=== PATIENT | female | born 1990 | race Caucasian/White ===

== ENCOUNTER 2017-05-16 09:29 | Emergency (ER) | payer SELFPAY ==
[~2017-05-16] VITALS: Ht 167.6 cm; Wt 59.0 kg
[2017-05-16 09:49] VITALS: BP 129/86
--- NOTE | 2017-05-16 09:53 | PHYS DOC ---
Adult General Chief Complaint Chief Complaint: MULTIPLE COMPLAINTS HPI HPI Patient is a 27 year old female who presents with right flank pain radiating to the right upper quadrant that began 3 days ago. Patient denies any nausea vomiting. Denies any urgency frequency or dysuria but states her urine feels very concentrated. She states she was seen at [facility] 3 weeks ago and was told she had a miscarriage at 14 weeks gestation. Patient states she never followed up after that. Patient denies any vaginal discharge, denies any bleeding, she states she's been sexually active and does not know if she is or not. Review of Systems Review of Systems Constitutional: Denies fever or chills [] Eyes: Denies change in visual acuity, redness, or eye pain [] HENT: Denies nasal congestion or sore throat [] Respiratory: Denies cough or shortness of breath [] Cardiovascular: No additional information not addressed in HPI [] GI: Reports right flank pain radiating to the right upper quadrant, denies nausea, vomiting, bloody stools or diarrhea [] : Reports concentrated urine Denies dysuria or hematuria [] Musculoskeletal: Denies back pain or joint pain [] Integument: Denies rash or skin lesions [] Neurologic: Denies headache, focal weakness or sensory changes [] All other systems were reviewed and found to be within normal limits, except as documented in this note. Current Medications Current Medications Current Medications Medications (Trade) Dose Ordered Sig/Nikki Start Time Stop Time Status Last Admin Dose Admin Sodium Chloride 1,000 ml @ 1,000 mls/hr 1X ONCE 05/16/17 10:00 05/16/17 10:31 DC Allergies Allergies Allergies Coded Allergies Type Severity Reaction Last Updated Verified No Known Drug Allergies 05/16/17 No Physical Exam Physical Exam Constitutional: Well developed, well nourished, no acute distress, non-toxic appearance. [] HENT: Normocephalic, atraumatic, bilateral external ears normal, oropharynx moist, no oral exudates, nose normal. [] Eyes: PERRLA, EOMI, conjunctiva normal, no discharge. [] Neck: Normal range of motion, no tenderness, supple, no stridor. [] Cardiovascular:Heart rate regular rhythm, no murmur [] Lungs & Thorax: Bilateral breath sounds clear to auscultation [] Abdomen: Bowel sounds normal, soft, no tenderness, no masses, no pulsatile masses. [] Skin: Warm, dry, no erythema, no rash. [] Back: No tenderness, moderate right CVA tenderness. [] Extremities: No tenderness, no cyanosis, no clubbing, ROM intact, no edema. [] Neurologic: Alert and oriented X 3, normal motor function, normal sensory function, no focal deficits noted. [] Psychologic: Affect normal, judgement normal, mood normal. [] Current Patient Data Vital Signs Vital Signs Date Time Temp Pulse Resp B/P (MAP) Pulse Ox O2 Delivery O2 Flow Rate FiO2 05/16/17 09:49 98.9 107 20 129/86 (100) 98 Room Air 98.9 Lab Values Laboratory Tests Test 05/16/17 09:35 05/16/17 09:38 05/16/17 09:55 Urine Collection Type Unknown Urine Color Yellow Urine Clarity Clear Urine pH 6.[address] [place] 1.015 Urine Protein 100 mg/dL (NEG-TRACE) Urine Glucose (UA) Negative mg/dL (NEG) Urine Ketones (Stick) Negative mg/dL (NEG) Urine Blood Large (NEG) Urine Nitrite Positive (NEG) Urine Bilirubin Negative (NEG) Urine Urobilinogen Dipstick 0.2 mg/dL (0.2 mg/dL) Urine Leukocyte Esterase Large (NEG) Urine RBC 1-2 /HPF (0-2) Urine WBC >40 /HPF (0-4) Urine Squamous Epithelial Cells Few /LPF Urine Bacteria Many /HPF (0-FEW) Urine Mucus Slight /LPF Urine Trichomonas Present Urine Opiates Screen Neg (NEG) Urine Methadone Screen Neg (NEG) Urine Barbiturates Neg (NEG) Urine Phencyclidine Screen Neg (NEG) Urine Amphetamine/Methamphetamine Neg (NEG) Urine Benzodiazepines Screen Neg (NEG) Urine Cocaine Screen Neg (NEG) Urine Cannabinoids Screen Neg (NEG) Urine Ethyl Alcohol Neg (NEG) POC Urine HCG, Qualitative Hcg negative (Negative) White Blood Count 17.2 x10^3/uL (4.0-11.0) H Red Blood Count 4.84 x10^6/uL (3.50-5.40) Hemoglobin 14.2 g/dL (12.0-15.5) Hematocrit 43.8 % (36.0-47.0) Mean Corpuscular Volume 91 fL (79-100) Mean Corpuscular Hemoglobin 29 pg (25-35) Mean Corpuscular Hemoglobin Concent 32 g/dL (31-37) Red Cell Distribution Width 13.7 % (11.5-14.5) Platelet Count 204 x10^3/uL (140-400) Neutrophils (%) (Auto) 87 % (31-73) H Lymphocytes (%) (Auto) 5 % (24-48) L Monocytes (%) (Auto) 8 % (0-9) Eosinophils (%) (Auto) 0 % (0-3) Basophils (%) (Auto) 0 % (0-3) Neutrophils # (Auto) 14.9 x10^3uL (1.8-7.7) H Lymphocytes # (Auto) 0.8 x10^3/uL (1.0-4.8) L Monocytes # (Auto) 1.5 x10^3/uL (0.0-1.1) H Eosinophils # (Auto) 0.0 x10^3/uL (0.0-0.7) Basophils # (Auto) 0.0 x10^3/uL (0.0-0.2) Segmented Neutrophils % 84 % (35-66) H Band Neutrophils % 3 % (0-9) Lymphocytes % 8 % (24-48) L Atypical Lymphocytes % (Manual) 1 % (0-0) H Monocytes % 4 % (0-10) Toxic Vacuolation Present Platelet Estimate Adequate (ADEQUATE) Large Platelets Present Sodium Level 132 mmol/L (136-145) L Potassium Level 3.7 mmol/L (3.5-5.1) Chloride Level 98 mmol/L (98-107) Carbon Dioxide Level 27 mmol/L (21-32) Anion Gap 7 (6-14) Blood Urea Nitrogen 9 mg/dL (7-20) Creatinine 1.1 mg/dL (0.6-1.0) H Estimated GFR (Cockcroft-Gault) 60.0 BUN/Creatinine Ratio 8 (6-20) Glucose Level 97 mg/dL (70-99) Calcium Level 9.1 mg/dL (8.5-10.1) Total Bilirubin 0.7 mg/dL (0.2-1.0) Aspartate Amino Transferase (AST) 16 U/L (15-37) Alanine Aminotransferase (ALT) 16 U/L (14-59) Alkaline Phosphatase 86 U/L (46-116) Total Protein 7.5 g/dL (6.4-8.2) Albumin 3.6 g/dL (3.4-5.0) Albumin/Globulin Ratio 0.9 (1.0-1.7) L Lipase 56 U/L (73-393) L Laboratory Tests 05/16/17 09:55 Laboratory Tests 05/16/17 09:55 EKG EKG [] Radiology/Procedures Radiology/Procedures [] Course & Med Decision Making Course & Med Decision Making Pertinent Labs and Imaging studies reviewed. (See chart for details) Patient is in the ED complaining of right flank pain radiating to the right upper quadrant for 3 days. She was at three weeks ago for a miscarriage. 10:00patient is requesting paperwork to be faxed to court stating she is in the Ed and will not attend her court date today at 11:00 because she can not walk. Of note patient is able to walk Patient was informed we do not get involved in court issues. 10:15 Patient is signing out AMA telling the nurses this is in the only [facility] hospital that does not fax paperwork to court. She states the only reason for her visit today was to get paperwork faxed to court stating she can not attend court. She was given AMA paperwork. She has enough time to go to court considering she is leaving the ED before 10:30am. Received a call from Isma CAPPS at [facility] stating patient showed up in their ED. He states she showed up at Court I refused to leave her car stating she can not walk and police had to witness she can not walk then be transported to the Ed. I gave Isma CAPPS our lab values including positive Trichomonas test. He promised to cover her for STDs Dragon Disclaimer Dennys Disclaimer This electronic medical record was generated, in whole or in part, using a voice recognition dictation system. 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
[2017-05-16] MEDS ORDERED: IV NORMAL SALINE 1000ML BAG 1,000 ML IV ONE (10:00)
[2017-05-16 10:06] LABS: BASO % 0 % (0-3); EOS % 0 % (0-3); HEMATOCRIT 43.8 % (36.0-47.0); HEMOGLOBIN 14.2 g/dL (12.0-15.5); LYMPH # 0.8 x10^3/uL (1.0-4.8); LYMPH % 5 % (24-48); MEAN CORPUSCULAR HEMOGLOBIN 29 pg (25-35); MEAN CORPUSCULAR HGB CONC 32 g/dL (31-37); MEAN CORPUSCULAR VOLUME 91 fL (79-100); MONO % 8 % (0-9); NEUT % 87 % (31-73); PLATELET COUNT 204 x10^3/uL (140-400); RED BLOOD COUNT 4.84 x10^6/uL (3.50-5.40); RED CELL DISTRIBUTION WIDTH 13.7 % (11.5-14.5); WHITE BLOOD COUNT 17.2 x10^3/uL (4.0-11.0)
[2017-05-16 10:13] LABS: CALCIUM 9.1 mg/dL (8.5-10.1); CREATININE 1.1 mg/dL (0.6-1.0); POTASSIUM 3.7 mmol/L (3.5-5.1)
[2017-05-16 10:15] LABS: BILIRUBIN,URINE NEGATIVE (NEG); GLUCOSE,URINE NEGATIVE (NEG); NITRITE,URINE POSITIVE (NEG); PH,URINE 6.5; PROTEIN,URINE 100 mg/dL (NEG-TRACE); UROBILINOGEN,URINE 0.2 mg/dL (0.2 mg/dL)
[2017-05-16 10:19] LABS: ALBUMIN 3.6 g/dL (3.4-5.0); ALBUMIN/GLOBULIN RATIO 0.9 (1.0-1.7); TOTAL BILIRUBIN 0.7 mg/dL (0.2-1.0); TOTAL PROTEIN 7.5 g/dL (6.4-8.2)
[2017-05-16 10:34] LABS: BARBITURATES NEG (NEG); BENZODIAZEPINES NEG (NEG); CANNABINOIDS NEG (NEG); COCAINE NEG (NEG); METHADONE NEG (NEG); OPIATES NEG (NEG); PHENCYCLIDINE NEG (NEG)
[2017-05-16 10:35] LABS: BACTERIA,URINE MANY /HPF (0-FEW); SQUAMOUS EPITHELIAL CELL,UR FEW /LPF; WBC,URINE >40 /HPF (0-4)
[2017-05-16 10:36] LABS: TRICHOMONAS,URINE PRESENT
[2017-05-16 11:05] LABS: PLT ESTIMATE ADEQUATE (ADEQUATE)
[2017-05-16 11:06] LABS: TOXIC VACUOLATION PRESENT
== END 2017-05-16 10:17 | disposition left against medical advice (07) ==
LOC: ER 09:29
DX: R10.9 Unspecified abdominal pain (principal)
CPT/HCPCS: 36415; 80053; 80307; 81001; 81025; 83690; 85007; 85025; 87086; 87186; 99284; G0479

== ENCOUNTER 2018-03-15 22:51 | Emergency (ER) | payer SELFPAY ==
[~2018-03-15] VITALS: Ht 165.1 cm; Wt 54.4 kg
[2018-03-15 23:20] VITALS: BP 137/73
[2018-03-15 23:57] LABS: BASO # 0.1 x10^3/uL (0.0-0.2); BASO % 1 % (0-3); EOS # 0.3 x10^3/uL (0.0-0.7); EOS % 3 % (0-3); HEMATOCRIT 36.8 % (36.0-47.0); HEMOGLOBIN 12.7 g/dL (12.0-15.5); LYMPH # 2.7 x10^3/uL (1.0-4.8); LYMPH % 33 % (24-48); MEAN CORPUSCULAR HEMOGLOBIN 31 pg (25-35); MEAN CORPUSCULAR HGB CONC 35 g/dL (31-37); MEAN CORPUSCULAR VOLUME 91 fL (79-100); MONO # 0.4 x10^3/uL (0.0-1.1); MONO % 5 % (0-9); NEUT # 4.8 x10^3uL (1.8-7.7); NEUT % 58 % (31-73); PLATELET COUNT 407 x10^3/uL (140-400); RED BLOOD COUNT 4.07 x10^6/uL (3.50-5.40); RED CELL DISTRIBUTION WIDTH 14.2 % (11.5-14.5); WHITE BLOOD COUNT 8.3 x10^3/uL (4.0-11.0)
[2018-03-16] MEDS ORDERED: IV NORMAL SALINE 1000ML BAG 1,000 ML IV ONE
--- NOTE | 2018-03-16 00:04 | PHYS DOC ---
Past Medical History Past Medical History: Asthma Past Surgical History: Other Additional Past Surgical Histo: "STAPH INFECTION IN BUTT" Alcohol Use: Occasionally Drug Use: Marijuana Adult General Chief Complaint Chief Complaint: VAGINAL BLEEDING HPI HPI Patient is a 27 year old female who presents to the ER with complaints of heavy vaginal bleeding today and reports of passing a large clot that looked like tissue. Pt denies ever taking a home test, states that she has not had a menstrual cycle in 2 or 3 months. Today she has saturated more than one pad an hour. She also reports feeling dizzy and light headed today. She denies any fever, body aches, nausea, vomiting, diarrhea, abdominal pain, back pain, dysuria, irregular vaginal discharge prior to bleeding, or concerns of an STI. She is concerned that she may have had a miscarriage. Currently she denies any pain, states that she has had cramping with her vaginal bleeding. Review of Systems Review of Systems Constitutional: Denies fever or chills [] Eyes: Denies change in visual acuity, redness, or eye pain [] GI: Denies abdominal pain, nausea, vomiting, or diarrhea [] : Denies increased urinary frequency, dysuria or hematuria; reports heavy vaginal bleeding with cramping today and passing a large clot that looked like tissue prior to arrival. [] Musculoskeletal: Denies back pain Neurologic: Denies headache, focal weakness or sensory changes [] All other systems were reviewed and found to be within normal limits, except as documented in this note. Current Medications Current Medications Current Medications Medications (Trade) Dose Ordered Sig/[facility] Start Time Stop Time Status Last Admin Dose Admin Sodium Chloride 1,000 ml @ 1,000 mls/hr 1X ONCE 03/16/18 00:00 03/16/18 00:59 03/15/18 23:35 1,000 MLS/HR Allergies Allergies Allergies Coded Allergies Type Severity Reaction Last Updated Verified No Known Drug Allergies 05/16/17 No Physical Exam Physical Exam Constitutional: Well developed, well nourished, no acute distress, non-toxic appearance. [] HENT: Normocephalic, atraumatic, bilateral external ears normal, dry mucous membranes noted, no oral exudates, nose normal. [] Eyes: PERRLA, conjunctiva normal, no discharge. [] Cardiovascular:Heart rate regular rhythm, no murmur [] Lungs & Thorax: Bilateral breath sounds clear to auscultation [] Pelvic Exam: Learning Coach present Abdomen: Nontender, soft, bowel sounds active in all quadrants External Genitalia: Normal Skin Speculum: Normal vaginal mucosa, OS is closed, bloody cervical discharge Skin: Warm, dry, no erythema, no rash. [] Back: No CVA tenderness. [] Neurologic: Alert and oriented X 3, normal motor function, normal sensory function, no focal deficits noted. [] Psychologic: Affect normal, judgement normal, mood normal. [] Current Patient Data Vital Signs Vital Signs Date Time Temp Pulse Resp B/P (MAP) Pulse Ox O2 Delivery O2 Flow Rate FiO2 03/15/18 23:20 98.6 95 16 137/73 (94) 97 Room Air 98.6 Lab Values Laboratory Tests Test 03/15/18 23:15 03/15/18 23:40 POC Urine HCG, Qualitative Hcg negative (Negative) White Blood Count 8.3 x10^3/uL (4.0-11.0) Red Blood Count 4.07 x10^6/uL (3.50-5.40) Hemoglobin 12.7 g/dL (12.0-15.5) Hematocrit 36.8 % (36.0-47.0) Mean Corpuscular Volume 91 fL (79-100) Mean Corpuscular Hemoglobin 31 pg (25-35) Mean Corpuscular Hemoglobin Concent 35 g/dL (31-37) Red Cell Distribution Width 14.2 % (11.5-14.5) Platelet Count 407 x10^3/uL (140-400) H Neutrophils (%) (Auto) 58 % (31-73) Lymphocytes (%) (Auto) 33 % (24-48) Monocytes (%) (Auto) 5 % (0-9) Eosinophils (%) (Auto) 3 % (0-3) Basophils (%) (Auto) 1 % (0-3) Neutrophils # (Auto) 4.8 x10^3uL (1.8-7.7) Lymphocytes # (Auto) 2.7 x10^3/uL (1.0-4.8) Monocytes # (Auto) 0.4 x10^3/uL (0.0-1.1) Eosinophils # (Auto) 0.3 x10^3/uL (0.0-0.7) Basophils # (Auto) 0.1 x10^3/uL (0.0-0.2) Sodium Level 144 mmol/L (136-145) Potassium Level 4.0 mmol/L (3.5-5.1) Chloride Level 105 mmol/L (98-107) Carbon Dioxide Level 27 mmol/L (21-32) Anion Gap 12 (6-14) Blood Urea Nitrogen 12 mg/dL (7-20) Creatinine 1.1 mg/dL (0.6-1.0) H Estimated GFR (Cockcroft-Gault) 60.0 Glucose Level 75 mg/dL (70-99) Calcium Level 9.5 mg/dL (8.5-10.1) Laboratory Tests 03/15/18 23:40 Laboratory Tests 03/15/18 23:40 EKG EKG [] Radiology/Procedures Radiology/Procedures [] Course & Med Decision Making Course & Med Decision Making Pertinent Labs and Imaging studies reviewed. (See chart for details) Dx: irregular vaginal bleeding Pelvic exam, pt was symptomatic with orthostatic blood pressures, labs were not concerning. Pt was given 1 L of NS via IV in department. Encouraged to increase fluid intake at home. Follow up with PCP or OBGyn next week about irregular menstrual cycles. Return to the ER if symptoms worsen. Patient verbalized an understanding of home care, medications, follow-up, and return to ED instructions and was in agreement with the plan of care. [] Dragon Disclaimer Dragon Disclaimer This electronic medical record was generated, in whole or in part, using a voice recognition dictation system. Departure Departure Impression: Primary Impression: Vaginal bleeding, abnormal Additional Impressions: Irregular periods/menstrual cycles Dehydration Menorrhagia with irregular cycle Disposition: 01 HOME, SELF-CARE Condition: IMPROVED Referrals: NO PCP (PCP) Patient Instructions: Dehydration, Adult, [id number], Menorrhagia, Easy-to- Read Additional Instructions: Increase clear fluids. Ibuprofen 600 mg four times a day to help with cramps and to reduce heavy bleeding. Follow up with your PCP or OBGyn for further evaluation of irregular menstrual cycles. Recommend use of a period tracker. Return to the ER if symptoms worsen or persist. Scripts Ibuprofen (IBUPROFEN) 600 Mg Tablet 600 MG PO PRN Q6HRS PRN for INFLAMMATION for 5 Days, #20 TAB Prov: ALE ZEPEDA APRN 03/16/18 Problem Qualifiers ALE ZEPEDA APRN Mar 16, 2018 00:04
[2018-03-16 00:08] LABS: CALCIUM 9.5 mg/dL (8.5-10.1); CREATININE 1.1 mg/dL (0.6-1.0)
[2018-03-16] MEDS ORDERED: IBUP-1007 PO (00:48)
== END 2018-03-16 01:01 | disposition home or self-care (01) ==
LOC: ER 22:51
DX: N93.9 Abnormal uterine and vaginal bleeding, unspecified (principal); N92.6 Irregular menstruation, unspecified; E86.0 Dehydration; R42 Dizziness and giddiness; J45.909 Unspecified asthma, uncomplicated
CPT/HCPCS: 36415; 80048; 81025; 85025; 96360; 99284; J7030

== ENCOUNTER 2020-03-22 22:45 | Emergency (ER) | payer SELFPAY ==
[~2020-03-22 22:45] MED LIST: IBUP-1007 PO
== END 2020-03-22 23:01 | disposition left against medical advice (07) ==
LOC: ER 22:45
DX: R42 Dizziness and giddiness (principal); Z53.21 Procedure and treatment not carried out due to patient leaving prior to being seen by health care provider

== ENCOUNTER 2020-11-04 18:55 | Emergency (ER) | payer SELFPAY ==
[~2020-11-04] VITALS: Ht 167.6 cm; Wt 65.9 kg
[2020-11-04] MEDS ORDERED: IBUPROFEN 400 MG TABLET. PO ONE (20:15)
--- NOTE | 2020-11-04 21:01 | RAD ---
EXAMINATION: XR CHEST 1V CLINICAL HISTORY: Chest pain EXAM DATE/TIME: 11/04/2020 8:56 PM COMPARISON: None FINDINGS: Lines, Tubes, and Devices: None. Cardiomediastinal Silhouette: Within normal limits. Lungs and Pleura: No evidence of focal airspace consolidation, pleural effusion, or pneumothorax. Bones and Soft Tissues: No acute osseous abnormality. IMPRESSION: No evidence of acute cardiopulmonary abnormality. Electronically signed by: Oswaldo Messina DO (11/04/2020 8:59 PM) [facility]
--- NOTE | 2020-11-04 21:17 | ED.ADGEN ---
Past Medical History Past Medical History: No Pertinent History Past Surgical History: No Surgical History Additional Past Surgical Histo: "STAPH INFECTION IN BUTT" Smoking Status: Never Smoker Alcohol Use: None Drug Use: Marijuana General Adult EDM: Chief Complaint: SORE THROAT HPI: HPI: Patient is a 30 year old female who presents emergency department with complaints of a sore throat, runny nose with clear drainage, nasal congestion, headache, bilateral ear pain and congestion, dry cough, and decreased taste/smell for the last 3 days. Patient denies any wheezing or shortness of breath. She denies any chest pain, palpitations, nausea, vomiting, diarrhea, or abdominal pain. She denies any known exposure to COVID-19. Patient states she has not been immunized against the infection. She currently rates her pain 8 out of 10 on pain scale, she denies any alleviating factors. Review of Systems: Review of Systems: Complete ROS is negative unless otherwise noted in HPI. Current Medications: Current Medications Medications (Trade) Dose Ordered Sig/Nikki Start Time Stop Time Status Last Admin Dose Admin Ibuprofen (Motrin) 800 mg 1X ONCE 11/04/20 20:15 11/04/20 20:16 DC 11/04/20 20:37 800 MG Allergies: Allergies: Allergies Coded Allergies Type Severity Reaction Last Updated Verified No Known Drug Allergies 05/16/17 No Physical Exam: PE: See Above Constitutional: Well developed, well nourished, no acute distress, non-toxic appearance. [] HENT: Normocephalic, atraumatic, bilateral external ears normal, nose normal. [] Eyes: PERRLA, EOMI, conjunctiva normal, no discharge. [] Neck: Normal range of motion, no stridor. [] Cardiovascular:Heart rate regular rhythm Lungs & Thorax: Respirations even and unlabored, no retractions, no respiratory distress Skin: Warm, dry, no erythema, no rash. [] Extremities: No cyanosis, ROM intact, no edema. [] Neurologic: Alert and oriented X 3, no focal deficits noted. [] Psychologic: Affect normal, judgement normal, mood normal. [] Current Patient Data: Labs: Laboratory Tests Test 11/04/20 19:44 11/04/20 20:41 SARS-CoV-2 RNA (PETER) Negative (Negative) Group A Streptococcus Rapid Negative (NEGATIVE) POC Urine HCG, Qualitative Hcg negative (Negative) Microbiology 11/04/20 Nose/Throat Culture - Final, Complete Vital Signs: Vital Signs Date Time Temp Pulse Resp B/P (MAP) Pulse Ox O2 Delivery O2 Flow Rate FiO2 11/04/20 21:58 87 18 106/69 (81) 96 Room Air 11/04/20 19:35 98.1 98.1 EKG: EKG: [] Heart Score: C/O Chest Pain: No Risk Scores: Score 0 - 3: 2.5% MACE over next 6 weeks - Discharge Home Score 4 - 6: 20.3% MACE over next 6 weeks - Admit for Clinical Observation Score 7 - 10: 72.7% MACE over next 6 weeks - Early Invasive Strategies Radiology/Procedures: Radiology/Procedures: PROCEDURE: CHEST AP ONLY EXAMINATION: XR CHEST 1V CLINICAL HISTORY: Chest pain EXAM DATE/TIME: 11/04/2020 8:56 PM COMPARISON: None FINDINGS: Lines, Tubes, and Devices: None. Cardiomediastinal Silhouette: Within normal limits. Lungs and Pleura: No evidence of focal airspace consolidation, pleural effusion, or pneumothorax. Bones and Soft Tissues: No acute osseous abnormality. IMPRESSION: No evidence of acute cardiopulmonary abnormality. Electronically signed by: Oswaldo Messina DO (11/04/2020 8:59 PM) [facility] Course & Med Decision Making: Course & Med Decision Making Pertinent Labs and Imaging studies reviewed. (See chart for details) COVID-19 CRITERIA: The patient was evaluated during the global COVID-19 pandemic, and that diagnosis was suspected/considered upon their initial presentation. Their evaluation, treatment and testing was consistent with current guidelines for patients who present with complaints or symptoms that may be related to COVID-19. []Did no personally evaluate the patient. Treatment and care plan was independently made by MLKaron. I was available for consult. Dennys Disclaimer: Dennys Disclaimer: This electronic medical record was generated, in whole or in part, using a voice recognition dictation system. Departure Departure Impression: Primary Impression: Pharyngitis Additional Impression: Person under investigation for COVID-19 Disposition: HOME / SELF CARE / HOMELESS Condition: STABLE Referrals: NO PCP (PCP) Patient Instructions: Viral Pharyngitis Additional Instructions: You have been tested for or diagnosed with COVID-19. It is an infection caused by a new type of coronavirus. COVID-19 will cause cold-like or mild flu symptoms in most. It can cause more severe symptoms like problems breathing in some. There is no treatment for COVID-19. The body will clear the infection over time. Self-care will help to ease discomfort. Steps to Take: Self-Care Rest as needed. Healthy habits may help you feel better. Steps include: Choose healthy foods including fruits and vegetables. Drink water throughout the day. Get plenty of sleep each night. If you smoke, try to quit. It may ease breathing. Avoid alcohol. Keep Others Healthy The virus can spread to others. Droplets are released every time you sneeze or cough. The droplets can get into the mouth, nose, or eyes of people near you and lead to infection. To lower the chances of spreading COVID-19 to others: Stay at home until your doctor has said it is safe to leave. If you tested positive this will mean staying isolated until both of the following are true: At least 7 days have passed since the start of illness. You are free of fever for at least 72 hours without the use of medicine. During this time: - Avoid public areas, events, or transportation. Do not return to work or school until your doctor has said it is safe to do so. - Call ahead if you need to go to a medical center. Let them know you may have COVID-19. It will help them guide you where to go. They may also ask you to wear a facemask when you come to the office. - If you call for emergency medical services, let them know you may have COVID- 19. While at home: - Try to avoid close contact with others. Stay about 6 feet away. - If possible, spend most of your time in a separate room from others. - Use a face mask if you will be in close contact with others such as sharing a room or vehicle. - Have someone wipe down common surfaces in the home. Use household stud dairy cattle farmer every day on areas like doorknobs, counters, or sinks. - Cough or sneeze into a tissue. Throw the tissue away right after use. If a tissue is not available, cough or sneeze into your elbow. - Wash your hands often. Wash them after sneezing or coughing. Use soap and water and wash for at least 20 seconds. Alcohol based hand bladder cleaner can be used if soap and water is not available. - Do not prepare food for others. Avoid sharing personal items like forks, spoons, or toothbrushes. - Avoid close contact with pets while you are sick. There is no evidence of the virus passing to pets. This is a safety step until more is known about this virus. Isolation can be frustrating. Social interaction can help. Keep in touch with friends and family through phone and tech options. You can still interact with others in yo ur home, just keep a safe distance of about 6 feet. Follow-up: Your doctors office will check in with you to see if there are any changes in your health. You may be asked to keep track of symptoms to share with them. They will also let you know when you are clear to be in public again. Problems to Look Out For: Contact your doctor if your recovery is not going as you expect. Get emergency care if you have problems such as: - Trouble breathing - Nonstop chest pain or pressure - Changes in awareness, confusion, or problems waking - Lips or face have bluish color - Worsening of symptoms If you think you have an emergency, call for emergency medical services right away. [facility] Problem Qualifiers Primary Impression: Pharyngitis Pharyngitis/tonsillitis etiology: unspecified etiology Qualified Codes: J02.9 - Acute pharyngitis, unspecified ALE ZEPEDA APRN November 04, 2020 21:17 DOMINICK GOMEZ I DO November 06, 2020 18:12
[2020-11-04 21:58] VITALS: BP 106/69
--- NOTE | 2020-11-07 09:05 | NUR ---
IP: Attempted to contact pt concerning COVID test. No answer, no voicemail.
== END 2020-11-04 22:06 | disposition home or self-care (01) ==
LOC: ER 18:55
DX: J02.9 Acute pharyngitis, unspecified (principal); R51.9 Headache, unspecified; H92.03 Otalgia, bilateral; R09.81 Nasal congestion; Z20.822 Contact with and (suspected) exposure to COVID-19
CPT/HCPCS: 71045; 81025; 87070; 87147; 87880; 99285; U0003; U0005

== ENCOUNTER 2021-03-09 14:33 | Emergency (ER) | payer SELFPAY ==
[~2021-03-09] VITALS: Ht 167.6 cm; Wt 64.0 kg
[2021-03-09 15:26] VITALS: BP 111/68
[2021-03-09] MEDS ORDERED: VALA10008 PO (15:49)
--- NOTE | 2021-03-09 15:50 | PHYS DOC ---
Past Medical History Past Medical History: No Pertinent History (KAIN BOLES) Past Surgical History: No Surgical History Additional Past Surgical Histo: "STAPH INFECTION IN BUTT" (KAIN BOLES) Smoking Status: Never Smoker Alcohol Use: None Drug Use: Marijuana (KAIN BOLES) General Adult EDM: Chief Complaint: INSECT BITE HPI: HPI: Patient is a 30 year old female who presents with skin lesion to her right buttock. Patient states that she first noticed it 3 days ago, and it has doubled in size since that time. Patient reports the lesion brushing up on clothing or sitting on her buttock where the lesion is increases her pain. She states it is warm to the touch. She denies any paresthesias, including [id number] or numbness prior to or after skin eruption. Patient denies a history of both oral and genital herpes, and does not get cold sores. She denies fever and chills. Patient has no other complaints at this time. (KAIN BOLES) Review of Systems: Review of Systems: ROS negative except as mentioned in HPI. (KAIN BOLES) Heart Score: C/O Chest Pain: No (KAIN BOLES) Allergies: Allergies: Allergies Coded Allergies Type Severity Reaction Last Updated Verified No Known Drug Allergies 05/16/17 No (KAIN BOLES) Physical Exam: PE: Constitutional: Well developed, well nourished, no acute distress, non-toxic appearance. Cardiovascular:Heart rate regular rhythm, no murmur. Lungs & Thorax: Bilateral breath sounds clear to auscultation. Skin: 2-2-1/2 cm round vesicular rash noted to the medial inferior right buttock. Skin below rash is erythematous without fluctuance. Skin is otherwise warm, dry, no erythema. Extremities: No tenderness, no cyanosis, no clubbing, ROM intact, no edema. Neurologic: Alert and oriented X 3, normal motor function, normal sensory function, no focal deficits noted. (KAIN BOLES) Current Patient Data: Vital Signs: Vital Signs Date Time Temp Pulse Resp B/P (MAP) Pulse Ox O2 Delivery O2 Flow Rate FiO2 03/09/21 15:26 97.8 76 16 111/68 (82) 100 Room Air 97.8 (KAIN BOLES) Course & Med Decision Making: Course & Med Decision Making Pertinent Labs and Imaging studies reviewed. (See chart for details) Rash appearance is consistent with herpetic lesion. Patient will be discharged with prescription for valacyclovir and instructions to follow-up with her primary care physician if this does not alleviate her symptoms. Patient is agreeable to discharge plan (KAIN BOLES) Dragon Disclaimer: Dragon Disclaimer: This electronic medical record was generated, in whole or in part, using a voice recognition dictation system. (KAIN BOLES) Departure Departure Impression: Primary Impression: Herpes simplex infection of skin Disposition: HOME / SELF CARE / HOMELESS Condition: STABLE Referrals: NO PCP (PCP) MODESTA JAMA MD Patient Instructions: Herpes Simplex Additional Instructions: The rash you presented within the emergency department today is consistent with a herpes simplex rash. You are prescribed with an antiviral medication should decrease your pain, and improve the rash itself. You may follow-up with your primary care provider regarding further diagnosis and management. Scripts Valacyclovir Hcl (VALACYCLOVIR) 1,000 Mg Tablet 1000 MG PO BID for 7 Days, #14 TAB Take 1 tablet by mouth twice per day for 7 days. Prov: KAIN BOLES 03/09/21 Attending Signature I have participated in the care of this patient and I have reviewed and agree with all pertinent clinical information above including history, exam, and recommendations. (TETE DENT DO) KAIN BOLES Mar 09, 2021 15:50 TETE DENT DO Mar 09, 2021 16:56
== END 2021-03-09 15:56 | disposition home or self-care (01) ==
LOC: ER 14:33
DX: B00.9 Herpesviral infection, unspecified (principal)
CPT/HCPCS: 99283